=== PATIENT | female | born 1945 | race African-American/Black ===

== ENCOUNTER 2020-02-17 15:42 | Inpatient (IN) ==
[2020-02-17] MEDS ORDERED: DEXTROSE 50% 25 GM/50 ML SYRINGE IV ONE (16:05)
[2020-02-17] MEDS ORDERED: DEXTROSE 50% 25 GM/50 ML SYRINGE IV STA (16:11)
[2020-02-17] MEDS ORDERED: HALOPERIDOL 5 MG/ML AMP ONE (16:19)
[2020-02-17] MEDS ORDERED: LORazepam 2 MG/1 ML VIAL ONE (16:20)
[2020-02-17] MEDS ORDERED: HALOPERIDOL 5 MG/ML AMP IM STA ×2 (16:27→16:57)
[2020-02-17] MEDS ORDERED: LORazepam 2 MG/1 ML VIAL IM STA (16:27)
[2020-02-17] MEDS ORDERED: LORazepam 2 MG/1 ML VIAL IV STA (17:24)
[2020-02-17 19:14] LABS: Basophils % 0.3 % (0.0-0.8); Eosinophils # 0.1 10*3/uL (0.0-0.87); Eosinophils % 1.6 % (0.00-10.9); Hematocrit 37.9 VOL% (35.7-47.0); Hemoglobin 11.4 GM/DL (12.0-16.0); Immature Granulocytes % 0.2 %; Immature Granulocytes Absolute 0.01 #; Lymphocytes # 1.8 10*3/uL (1.4-4.0); Lymphocytes % 28.8 % (21.3-54.2); Mean Corpuscular HGB Conc 30.1 GM/DL (32-36); Mean Corpuscular Volume 97.9 FL (87-102); Mean Platelet Volume 9.7 FL (9.6-12.0); Neutrophils % 58.1 % (38.7-73.9); Platelet Count 277 T/CUMM (130-400); Red Blood Count 3.87 MC/CUMM (3.8-5.5); Red Cell Distribution Width 13.7 % (9.3-17.3); White Blood Count 6.3 T/CUMM (4-12)
[2020-02-17 19:17] LABS: Apearance,Urine CLEAR (Clear); Bacteria,Urine Occasional /HPF (Few); Bilirubin,Urine Negative (Negative); Blood, Urine Negative (Negative); Glucose,Urine (UA) 50 mg/dL (Negative); Hyaline Casts,Urine 14 /LPF (0-3); Ketones,Urine Negative (Negative); Mucus,Urine Occasional /LPF (Occasional); Nitrite,Urine Negative (Negative); Protein,Urine 30 MG/DL; RBC,Urine <1 /HPF (0-4); Squamous Epithelial Cell,Urine Occasional /HPF (0-10); Urine Color Yellow (Yellow); Urine Urobilinogen < 2.0 EU/DL (0.2-1.0); WBC,Urine 1 /HPF (0-6)
[2020-02-17 19:27] LABS: Partial Thromboplastin Time 30.5 SECS (23.9-33.8)
[2020-02-17 19:39] LABS: Alanine Aminotransferase 40 U/L (13-56); Albumin 3.7 G/DL (3.4-5.0); Alkaline Phosphatase 94 U/L (45-117); Aspartate Amino Transferase 40 U/L (0-37); Bilirubin,Total < 0.39 MG/DL (0.2-1.0); Blood Urea Nitrogen 28 MG/DL (7-18); CKMB % 1.4 %; Calcium 8.9 MG/DL (8.5-10.1); Estimated Glom Filtration Rate 44 ML/MIN; Glucose 76 MG/DL (74-106); Osmolality,Calculated 277.8 MOS/KG (273-304); Total Protein 7.8 G/DL (6.4-8.3)
[2020-02-17 19:41] LABS: Troponin I 0.102 NG/ML (0.00-0.045)
[2020-02-17] MEDS ORDERED: DEXTROSE 50% 25 GM/50 ML VIAL IV STA (20:33)
[2020-02-18] MEDS ORDERED: GLUCAGON 1 MG VIAL IM PRN (00:19)
[2020-02-18] MEDS ORDERED: ONDANSETRON 4 MG/2 ML VIAL IV PRN (00:19)
[2020-02-18] MEDS ORDERED: DOCUSATE SODIUM 100 MG CAPSULE PO PRN (00:19)
[2020-02-18] MEDS ORDERED: DEXTROSE 50% 25 GM/50 ML SYRINGE IV PRN (00:19)
[2020-02-18] MEDS ORDERED: DEXTROSE 10% 250 ML BAG IV PRN (00:25)
[2020-02-18] MEDS: DEXTROSE 5% NACL 0.9% 1,000 ML IV SCH ×4 (00:59→18:11)
[2020-02-18 02:00] LABS: Barbiturates Screen,Urine Negative (Negative); Benzodiazepines Screen,Urine Negative (Negative); Cannabinoid Screen,Urine Negative (Negative); Opiate Screen,Urine Positive (Negative); Phencyclidine Screen,Urine Negative (Negative)
[2020-02-18 03:25] LABS: Basophils % 0.6 % (0.0-0.8); Eosinophils # 0.1 10*3/uL (0.0-0.87); Hematocrit 38.7 VOL% (35.7-47.0); Hemoglobin 11.9 GM/DL (12.0-16.0); Immature Granulocytes % 0.3 %; Immature Granulocytes Absolute 0.02 #; Lymphocytes # 2.4 10*3/uL (1.4-4.0); Lymphocytes % 34.8 % (21.3-54.2); Mean Corpuscular HGB Conc 30.7 GM/DL (32-36); Mean Platelet Volume 9.1 FL (9.6-12.0); Monocytes % 11.5 % (1.7-12.7); Neutrophils % 50.8 % (38.7-73.9); Platelet Count 264 T/CUMM (130-400); Red Blood Count 4.03 MC/CUMM (3.8-5.5); Red Cell Distribution Width 13.7 % (9.3-17.3)
[2020-02-18 03:43] LABS: Calcium 8.5 MG/DL (8.5-10.1); Risk Ratio 1.94; VLDL CHOLESTEROL 15.2 MG/DL
[2020-02-18] MEDS: ENOXAPARIN 40 MG/0.4 ML SYRINGE SUBCUT SCH (06:35)
[2020-02-18] MEDS: ASPIRIN EC 81 MG TABLET PO SCH (11:03)
[2020-02-18] MEDS: INSULIN LISPRO 100 UNIT/ML SUBCUT SCH (23:47)
[2020-02-18] MEDS: hydrALAZINE 20 MG/1 ML VIAL IV PRN (23:48)
[2020-02-19] MEDS ORDERED: oxyCODONE/ACETAMINOPHEN 5-325 MG TABLET PO ONE (01:00)
[2020-02-19] MEDS: ENOXAPARIN 40 MG/0.4 ML SYRINGE SUBCUT SCH (05:46)
[2020-02-19 06:08] LABS: Basophils % 0.4 % (0.0-0.8); Eosinophils % 0.5 % (0.00-10.9); Hematocrit 37.3 VOL% (35.7-47.0); Hemoglobin 11.4 GM/DL (12.0-16.0); Immature Granulocytes % 0.4 %; Immature Granulocytes Absolute 0.03 #; Lymphocytes # 1.8 10*3/uL (1.4-4.0); Lymphocytes % 24.4 % (21.3-54.2); Mean Corpuscular HGB Conc 30.6 GM/DL (32-36); Mean Corpuscular Volume 96.6 FL (87-102); Mean Platelet Volume 9.6 FL (9.6-12.0); Monocytes % 14.1 % (1.7-12.7); Neutrophils % 60.2 % (38.7-73.9); Platelet Count 288 T/CUMM (130-400); Red Blood Count 3.86 MC/CUMM (3.8-5.5); Red Cell Distribution Width 13.9 % (9.3-17.3); White Blood Count 7.5 T/CUMM (4-12)
[2020-02-19 06:28] LABS: Calcium 8.8 MG/DL (8.5-10.1); Osmolality,Calculated 285.4 MOS/KG (273-304)
[2020-02-19] MEDS: INSULIN LISPRO 100 UNIT/ML SUBCUT SCH ×4 (09:16→21:22)
[2020-02-19] MEDS: ASPIRIN EC 81 MG TABLET PO SCH (09:17)
[2020-02-19] MEDS: ASPIRIN EC 325 MG TABLET PO SCH (17:07)
[2020-02-19] MEDS: ATORVASTATIN 10 MG TABLET PO SCH (17:09)
[2020-02-19] MEDS: PANTOPRAZOLE 40 MG TABLET PO SCH (17:10)
[2020-02-19] MEDS: GABAPENTIN 300 MG CAPSULE PO SCH (17:10)
[2020-02-19] MEDS: DONEPEZIL 10 MG TABLET PO SCH ×2 (21:23→21:43)
[2020-02-19] MEDS: MEMANTINE 10 MG TABLET PO SCH ×2 (21:23→21:45)
[2020-02-20] MEDS: hydrALAZINE 20 MG/1 ML VIAL IV PRN (05:07)
[2020-02-20] MEDS: ENOXAPARIN 40 MG/0.4 ML SYRINGE SUBCUT SCH (06:20)
[2020-02-20 06:37] LABS: Basophils % 0.3 % (0.0-0.8); Eosinophils # 0.1 10*3/uL (0.0-0.87); Eosinophils % 0.5 % (0.00-10.9); Hemoglobin 11.4 GM/DL (12.0-16.0); Immature Granulocytes % 0.2 %; Immature Granulocytes Absolute 0.02 #; Lymphocytes # 2.3 10*3/uL (1.4-4.0); Lymphocytes % 24.6 % (21.3-54.2); Mean Corpuscular HGB Conc 31.7 GM/DL (32-36); Mean Corpuscular Volume 94.5 FL (87-102); Mean Platelet Volume 9.9 FL (9.6-12.0); Monocytes % 10.4 % (1.7-12.7); Platelet Count 277 T/CUMM (130-400); Red Blood Count 3.81 MC/CUMM (3.8-5.5); Red Cell Distribution Width 14.1 % (9.3-17.3); White Blood Count 9.2 T/CUMM (4-12)
[2020-02-20 06:55] LABS: Calcium 9.2 MG/DL (8.5-10.1); Osmolality,Calculated 284.5 MOS/KG (273-304)
[2020-02-20] MEDS: INSULIN LISPRO 100 UNIT/ML SUBCUT SCH ×4 (09:29→22:02)
[2020-02-20] MEDS: ATORVASTATIN 10 MG TABLET PO SCH (13:49)
[2020-02-20] MEDS: ASPIRIN EC 325 MG TABLET PO SCH (13:49)
[2020-02-20] MEDS: PANTOPRAZOLE 40 MG TABLET PO SCH (13:49)
[2020-02-20] MEDS: MEMANTINE 10 MG TABLET PO SCH ×2 (13:49→22:05)
[2020-02-20] MEDS: GABAPENTIN 300 MG CAPSULE PO SCH (13:49)
[2020-02-20 16:58] LABS: Basophils % 0.2 % (0.0-0.8); Eosinophils % 0.2 % (0.00-10.9); Hematocrit 36.6 VOL% (35.7-47.0); Hemoglobin 11.4 GM/DL (12.0-16.0); Immature Granulocytes % 0.4 %; Immature Granulocytes Absolute 0.04 #; Lymphocytes # 1.6 10*3/uL (1.4-4.0); Mean Corpuscular HGB Conc 31.1 GM/DL (32-36); Mean Corpuscular Volume 95.6 FL (87-102); Mean Platelet Volume 9.8 FL (9.6-12.0); Monocytes % 11.7 % (1.7-12.7); Neutrophils % 71.5 % (38.7-73.9); Platelet Count 284 T/CUMM (130-400); Red Blood Count 3.83 MC/CUMM (3.8-5.5); Red Cell Distribution Width 14.1 % (9.3-17.3)
[2020-02-20 17:33] LABS: Albumin 3.3 G/DL (3.4-5.0); Bilirubin,Total 0.7 MG/DL (0.2-1.0); Calcium 9.2 MG/DL (8.5-10.1); Osmolality,Calculated 286.5 MOS/KG (273-304); Total Protein 7.5 G/DL (6.4-8.3)
[2020-02-20] MEDS: DONEPEZIL 10 MG TABLET PO SCH (22:03)
[2020-02-20] MEDS: MIRTAZAPINE 15 MG TABLET PO SCH (22:05)
[2020-02-21 00:13] LABS: Apearance,Urine CLEAR (Clear); Bilirubin,Urine Negative (Negative); Blood, Urine Negative (Negative); Glucose,Urine (UA) 150 mg/dL (Negative); Hyaline Casts,Urine 1 /LPF (0-3); Ketones,Urine Negative (Negative); Mucus,Urine Occasional /LPF (Occasional); Nitrite,Urine Negative (Negative); Protein,Urine Negative; RBC,Urine 2 /HPF (0-4); Squamous Epithelial Cell,Urine Occasional /HPF (0-10); Urine Color Yellow (Yellow); Urine Specific Gravity 1.021 (1.001-1.035); Urine Urobilinogen < 2.0 EU/DL (0.2-1.0); WBC,Urine 2 /HPF (0-6)
[2020-02-21 00:26] LABS: ABG Base Excess 2.2 MMOL/L (-2.5-2.5); ABG HCO3 26.4 MMOL/L (20-26); ABG Oxygen Saturation 97.2 % (95-100); ABG PCO2 41.5 MM HG (35-48); ABG PO2 89.8 MM HG (80-95); ABG TCO2 24.1 MMOL/L (23-27); Allen Test Positive; Pt O2 Delivery Device Ventilator
[2020-02-21 05:31] LABS: Basophils % 0.3 % (0.0-0.8); Eosinophils % 0.2 % (0.00-10.9); Hematocrit 35.6 VOL% (35.7-47.0); Immature Granulocytes % 0.3 %; Immature Granulocytes Absolute 0.03 #; Lymphocytes # 1.4 10*3/uL (1.4-4.0); Lymphocytes % 14.1 % (21.3-54.2); Mean Corpuscular HGB Conc 30.9 GM/DL (32-36); Mean Corpuscular Volume 95.2 FL (87-102); Mean Platelet Volume 10.8 FL (9.6-12.0); Monocytes % 12.9 % (1.7-12.7); Neutrophils % 72.2 % (38.7-73.9); Platelet Count 248 T/CUMM (130-400); Red Blood Count 3.74 MC/CUMM (3.8-5.5); Red Cell Distribution Width 14.1 % (9.3-17.3)
[2020-02-21 06:00] LABS: Calcium 9.1 MG/DL (8.5-10.1); Osmolality,Calculated 286.4 MOS/KG (273-304)
[2020-02-21] MEDS: ENOXAPARIN 40 MG/0.4 ML SYRINGE SUBCUT SCH (07:50)
[2020-02-21] MEDS: INSULIN LISPRO 100 UNIT/ML SUBCUT SCH ×4 (08:14→21:09)
[2020-02-21] MEDS: ATORVASTATIN 10 MG TABLET PO SCH ×2 (08:15→12:41)
[2020-02-21] MEDS: ASPIRIN EC 325 MG TABLET PO SCH ×2 (08:15→12:41)
[2020-02-21] MEDS: MEMANTINE 10 MG TABLET PO SCH ×3 (08:15→21:10)
[2020-02-21] MEDS: PANTOPRAZOLE 40 MG TABLET PO SCH ×2 (08:15→12:43)
[2020-02-21] MEDS: GABAPENTIN 300 MG CAPSULE PO SCH ×2 (08:15→12:41)
[2020-02-21] MEDS: hydrALAZINE 20 MG/1 ML VIAL IV PRN (08:30)
[2020-02-21] MEDS ORDERED: AZITHROMYCIN INJ 500 MG in SODIUM CHLORIDE 0.9% 250 ML IV ONE (09:30)
[2020-02-21] MEDS: cefTRIAXone 1,000 MG in SYRINGE 1 EACH IV SCH (10:53)
[2020-02-21] MEDS: QUEtiapine 25 MG TABLET PO SCH (12:41)
[2020-02-21] MEDS ORDERED: QUEtiapine 25 MG TABLET PO SCH (21:00)
[2020-02-21] MEDS: DONEPEZIL 10 MG TABLET PO SCH (21:09)
[2020-02-21] MEDS: MIRTAZAPINE 15 MG TABLET PO SCH (21:10)
[2020-02-22] MEDS: ENOXAPARIN 40 MG/0.4 ML SYRINGE SUBCUT SCH (05:34)
[2020-02-22 06:33] LABS: Basophils % 0.2 % (0.0-0.8); Eosinophils # 0.1 10*3/uL (0.0-0.87); Eosinophils % 0.5 % (0.00-10.9); Hematocrit 35.1 VOL% (35.7-47.0); Hemoglobin 10.9 GM/DL (12.0-16.0); Immature Granulocytes % 0.3 %; Immature Granulocytes Absolute 0.03 #; Lymphocytes # 1.5 10*3/uL (1.4-4.0); Lymphocytes % 12.9 % (21.3-54.2); Mean Corpuscular HGB Conc 31.1 GM/DL (32-36); Mean Corpuscular Volume 97.2 FL (87-102); Neutrophils % 74.1 % (38.7-73.9); Platelet Count 176 T/CUMM (130-400); Red Blood Count 3.61 MC/CUMM (3.8-5.5); Red Cell Distribution Width 14.1 % (9.3-17.3); White Blood Count 11.9 T/CUMM (4-12)
[2020-02-22 06:52] LABS: Eosinophils 2 % (0-10); Hypochromasia 1+; Lymphocytes 15 % (20-55); Platelet Estimate Adequate; Segmented Neutrophils 71 % (50-85); Total Cells Counted 100
[2020-02-22 06:58] LABS: Calcium 9.2 MG/DL (8.5-10.1); Osmolality,Calculated 286.4 MOS/KG (273-304)
[2020-02-22] MEDS: INSULIN LISPRO 100 UNIT/ML SUBCUT SCH ×4 (08:27→21:49)
[2020-02-22] MEDS: AZITHROMYCIN INJ 250 MG in SODIUM CHLORIDE 0.9% 150 ML IV SCH ×2 (10:00→10:55)
[2020-02-22] MEDS: cefTRIAXone 1,000 MG in SYRINGE 1 EACH IV SCH (10:00)
[2020-02-22] MEDS: QUEtiapine 25 MG TABLET PO SCH (10:55)
[2020-02-22] MEDS: ASPIRIN EC 325 MG TABLET PO SCH (10:55)
[2020-02-22] MEDS: MEMANTINE 10 MG TABLET PO SCH ×2 (10:55→21:51)
[2020-02-22] MEDS: GABAPENTIN 300 MG CAPSULE PO SCH (10:55)
[2020-02-22] MEDS: ATORVASTATIN 10 MG TABLET PO SCH (10:55)
[2020-02-22] MEDS: PANTOPRAZOLE 40 MG TABLET PO SCH (10:55)
[2020-02-22] MEDS: DONEPEZIL 10 MG TABLET PO SCH (21:51)
[2020-02-22] MEDS: MIRTAZAPINE 15 MG TABLET PO SCH (21:52)
[2020-02-23] MEDS: ENOXAPARIN 40 MG/0.4 ML SYRINGE SUBCUT SCH (05:41)
[2020-02-23 06:09] LABS: Basophils % 0.2 % (0.0-0.8); Eosinophils # 0.1 10*3/uL (0.0-0.87); Eosinophils % 1.2 % (0.00-10.9); Hematocrit 32.6 VOL% (35.7-47.0); Hemoglobin 10.2 GM/DL (12.0-16.0); Immature Granulocytes % 0.3 %; Immature Granulocytes Absolute 0.03 #; Lymphocytes # 1.3 10*3/uL (1.4-4.0); Mean Corpuscular HGB Conc 31.3 GM/DL (32-36); Mean Corpuscular Volume 95.9 FL (87-102); Mean Platelet Volume 10.3 FL (9.6-12.0); Monocytes % 12.9 % (1.7-12.7); Neutrophils % 72.4 % (38.7-73.9); Platelet Count 233 T/CUMM (130-400); Red Cell Distribution Width 13.8 % (9.3-17.3); White Blood Count 9.9 T/CUMM (4-12)
[2020-02-23 06:30] LABS: Calcium 9.1 MG/DL (8.5-10.1); Osmolality,Calculated 292.3 MOS/KG (273-304)
[2020-02-23] MEDS: INSULIN LISPRO 100 UNIT/ML SUBCUT SCH ×4 (08:21→21:53)
[2020-02-23] MEDS: AZITHROMYCIN INJ 250 MG in SODIUM CHLORIDE 0.9% 150 ML IV SCH (09:33)
[2020-02-23] MEDS: ASPIRIN EC 325 MG TABLET PO SCH (09:35)
[2020-02-23] MEDS: MEMANTINE 10 MG TABLET PO SCH ×2 (09:35→20:23)
[2020-02-23] MEDS: GABAPENTIN 300 MG CAPSULE PO SCH (09:35)
[2020-02-23] MEDS: PANTOPRAZOLE 40 MG TABLET PO SCH (09:36)
[2020-02-23] MEDS: ATORVASTATIN 10 MG TABLET PO SCH (09:36)
[2020-02-23] MEDS: cefTRIAXone 1,000 MG in SYRINGE 1 EACH IV SCH (10:00)
[2020-02-23] MEDS: ACETAMINOPHEN 325 MG TABLET PO PRN (13:44)
[2020-02-23] MEDS: DONEPEZIL 10 MG TABLET PO SCH (20:22)
[2020-02-23] MEDS: MIRTAZAPINE 15 MG TABLET PO SCH (20:23)
[2020-02-24] MEDS: ENOXAPARIN 40 MG/0.4 ML SYRINGE SUBCUT SCH (05:51)
[2020-02-24] MEDS: INSULIN LISPRO 100 UNIT/ML SUBCUT SCH ×4 (06:34→20:44)
[2020-02-24 06:46] LABS: Basophils % 0.4 % (0.0-0.8); Eosinophils # 0.3 10*3/uL (0.0-0.87); Eosinophils % 3.2 % (0.00-10.9); Hematocrit 33.6 VOL% (35.7-47.0); Hemoglobin 10.3 GM/DL (12.0-16.0); Immature Granulocytes % 0.4 %; Immature Granulocytes Absolute 0.03 #; Lymphocytes # 1.5 10*3/uL (1.4-4.0); Lymphocytes % 17.8 % (21.3-54.2); Mean Corpuscular HGB Conc 30.7 GM/DL (32-36); Mean Corpuscular Volume 95.7 FL (87-102); Mean Platelet Volume 10.7 FL (9.6-12.0); Monocytes % 12.6 % (1.7-12.7); Neutrophils % 65.6 % (38.7-73.9); Platelet Count 257 T/CUMM (130-400); Red Blood Count 3.51 MC/CUMM (3.8-5.5); Red Cell Distribution Width 13.2 % (9.3-17.3); White Blood Count 8.2 T/CUMM (4-12)
[2020-02-24 07:02] LABS: Calcium 9.3 MG/DL (8.5-10.1); Osmolality,Calculated 275.2 MOS/KG (273-304)
[2020-02-24] MEDS: ATORVASTATIN 10 MG TABLET PO SCH (08:43)
[2020-02-24] MEDS: ASPIRIN EC 325 MG TABLET PO SCH (08:43)
[2020-02-24] MEDS: MEMANTINE 10 MG TABLET PO SCH ×2 (08:43→20:45)
[2020-02-24] MEDS: PANTOPRAZOLE 40 MG TABLET PO SCH (08:43)
[2020-02-24] MEDS: GABAPENTIN 300 MG CAPSULE PO SCH (08:43)
[2020-02-24] MEDS: cefTRIAXone 1,000 MG in SYRINGE 1 EACH IV SCH ×2 (08:44→13:21)
[2020-02-24] MEDS: AZITHROMYCIN INJ 250 MG in SODIUM CHLORIDE 0.9% 150 ML IV SCH ×2 (08:44→13:21)
[2020-02-24] MEDS: MIRTAZAPINE 15 MG TABLET PO SCH (20:45)
[2020-02-24] MEDS: ACETAMINOPHEN 325 MG TABLET PO PRN (20:45)
[2020-02-24] MEDS: DONEPEZIL 10 MG TABLET PO SCH (20:45)
[2020-02-25] MEDS: ACETAMINOPHEN 325 MG TABLET PO PRN ×4 (02:32→17:20)
[2020-02-25 05:06] LABS: Basophils % 0.4 % (0.0-0.8); Eosinophils # 0.3 10*3/uL (0.0-0.87); Eosinophils % 3.8 % (0.00-10.9); Hematocrit 31.1 VOL% (35.7-47.0); Hemoglobin 9.5 GM/DL (12.0-16.0); Immature Granulocytes % 0.4 %; Immature Granulocytes Absolute 0.03 #; Lymphocytes # 1.5 10*3/uL (1.4-4.0); Lymphocytes % 20.2 % (21.3-54.2); Mean Corpuscular HGB Conc 30.5 GM/DL (32-36); Mean Corpuscular Volume 97.2 FL (87-102); Mean Platelet Volume 10.1 FL (9.6-12.0); Monocytes % 12.3 % (1.7-12.7); Neutrophils % 62.9 % (38.7-73.9); Platelet Count 273 T/CUMM (130-400); Red Cell Distribution Width 12.8 % (9.3-17.3); White Blood Count 7.6 T/CUMM (4-12)
[2020-02-25] MEDS: ENOXAPARIN 40 MG/0.4 ML SYRINGE SUBCUT SCH (06:23)
[2020-02-25] MEDS: INSULIN LISPRO 100 UNIT/ML SUBCUT SCH ×4 (09:34→22:18)
[2020-02-25] MEDS: ATORVASTATIN 10 MG TABLET PO SCH ×2 (09:34→12:30)
[2020-02-25] MEDS: PANTOPRAZOLE 40 MG TABLET PO SCH ×2 (09:34→12:30)
[2020-02-25] MEDS: GABAPENTIN 300 MG CAPSULE PO SCH ×2 (09:34→12:30)
[2020-02-25] MEDS: cefTRIAXone 1,000 MG in SYRINGE 1 EACH IV SCH (09:34)
[2020-02-25] MEDS: ASPIRIN EC 325 MG TABLET PO SCH ×2 (09:35→12:30)
[2020-02-25] MEDS: MEMANTINE 10 MG TABLET PO SCH ×3 (09:36→22:19)
[2020-02-25] MEDS: AZITHROMYCIN INJ 250 MG in SODIUM CHLORIDE 0.9% 150 ML IV SCH (09:36)
[2020-02-25] MEDS: DONEPEZIL 10 MG TABLET PO SCH (22:18)
[2020-02-25] MEDS: MIRTAZAPINE 15 MG TABLET PO SCH (22:19)
[2020-02-26] MEDS: ENOXAPARIN 40 MG/0.4 ML SYRINGE SUBCUT SCH (06:31)
[2020-02-26 06:32] LABS: Basophils % 0.6 % (0.0-0.8); Eosinophils # 0.3 10*3/uL (0.0-0.87); Hematocrit 34.6 VOL% (35.7-47.0); Hemoglobin 10.4 GM/DL (12.0-16.0); Immature Granulocytes % 0.3 %; Immature Granulocytes Absolute 0.02 #; Lymphocytes # 1.5 10*3/uL (1.4-4.0); Mean Corpuscular HGB Conc 30.1 GM/DL (32-36); Mean Corpuscular Volume 96.4 FL (87-102); Mean Platelet Volume 10.3 FL (9.6-12.0); Monocytes % 11.8 % (1.7-12.7); Neutrophils % 59.3 % (38.7-73.9); Platelet Count 315 T/CUMM (130-400); Red Blood Count 3.59 MC/CUMM (3.8-5.5); Red Cell Distribution Width 12.8 % (9.3-17.3); White Blood Count 6.3 T/CUMM (4-12)
[2020-02-26] MEDS: ACETAMINOPHEN 325 MG TABLET PO PRN ×4 (06:35→21:05)
[2020-02-26] MEDS: MEMANTINE 10 MG TABLET PO SCH ×2 (09:20→21:05)
[2020-02-26] MEDS: ASPIRIN EC 325 MG TABLET PO SCH (09:20)
[2020-02-26] MEDS: INSULIN LISPRO 100 UNIT/ML SUBCUT SCH ×4 (09:21→21:01)
[2020-02-26] MEDS: cefTRIAXone 1,000 MG in SYRINGE 1 EACH IV SCH (09:21)
[2020-02-26] MEDS: GABAPENTIN 300 MG CAPSULE PO SCH (09:21)
[2020-02-26] MEDS: PANTOPRAZOLE 40 MG TABLET PO SCH (09:21)
[2020-02-26] MEDS: ATORVASTATIN 10 MG TABLET PO SCH (09:21)
[2020-02-26] MEDS: AZITHROMYCIN INJ 250 MG in SODIUM CHLORIDE 0.9% 150 ML IV SCH (09:22)
[2020-02-26 10:08] LABS: Calcium 9.5 MG/DL (8.5-10.1); Osmolality,Calculated 281.8 MOS/KG (273-304)
[2020-02-26] MEDS: hydrALAZINE 20 MG/1 ML VIAL IV PRN (21:01)
[2020-02-26] MEDS: MIRTAZAPINE 15 MG TABLET PO SCH (21:05)
[2020-02-26] MEDS: DONEPEZIL 10 MG TABLET PO SCH (21:05)
[2020-02-27 05:45] LABS: Basophils % 0.5 % (0.0-0.8); Eosinophils # 0.3 10*3/uL (0.0-0.87); Eosinophils % 4.5 % (0.00-10.9); Hematocrit 32.1 VOL% (35.7-47.0); Hemoglobin 9.9 GM/DL (12.0-16.0); Immature Granulocytes % 0.3 %; Immature Granulocytes Absolute 0.02 #; Lymphocytes # 1.6 10*3/uL (1.4-4.0); Mean Corpuscular HGB Conc 30.8 GM/DL (32-36); Mean Corpuscular Volume 94.7 FL (87-102); Mean Platelet Volume 10.1 FL (9.6-12.0); Monocytes % 12.5 % (1.7-12.7); Neutrophils % 56.2 % (38.7-73.9); Platelet Count 329 T/CUMM (130-400); Red Blood Count 3.39 MC/CUMM (3.8-5.5); Red Cell Distribution Width 12.5 % (9.3-17.3); White Blood Count 6.2 T/CUMM (4-12)
[2020-02-27 06:07] LABS: Calcium 9.2 MG/DL (8.5-10.1); Osmolality,Calculated 283.8 MOS/KG (273-304)
[2020-02-27] MEDS: ENOXAPARIN 40 MG/0.4 ML SYRINGE SUBCUT SCH (07:14)
[2020-02-27] MEDS: INSULIN LISPRO 100 UNIT/ML SUBCUT SCH ×2 (09:10→14:41)
[2020-02-27] MEDS: ATORVASTATIN 10 MG TABLET PO SCH (09:11)
[2020-02-27] MEDS: ASPIRIN EC 325 MG TABLET PO SCH (09:11)
[2020-02-27] MEDS: GABAPENTIN 300 MG CAPSULE PO SCH (09:11)
[2020-02-27] MEDS: PANTOPRAZOLE 40 MG TABLET PO SCH (09:11)
[2020-02-27] MEDS: MEMANTINE 10 MG TABLET PO SCH (09:11)
[2020-02-27] MEDS: AZITHROMYCIN INJ 250 MG in SODIUM CHLORIDE 0.9% 150 ML IV SCH (09:15)
[2020-02-27] MEDS: cefTRIAXone 1,000 MG in SYRINGE 1 EACH IV SCH (09:45)
[2020-02-27 12:41] VITALS: BP 117/64
== END 2020-02-27 14:20 | DRG 70 ==
LOC: EDUNIT# → EDBD → N.ED 15:42 → N.EDINP 20:55 → N.TELEN 22:32
PROVIDERS: ADMIT Internal Medicine; ATTEND Internal Medicine